=== PATIENT | female | born 1995 | race Caucasian/White ===

== ENCOUNTER → 2020-05-02 | Outpatient (REF) | payer OTHER, MEDICAID ==
[~2020-05-02] MED LIST: IBUP-1114 PO; MAPA500T2 PO; PRENATALVITAMIN PO
== END ==
LOC: M WHC 15:30
PROVIDERS: ATTEND Advanced Practice Midwife
DX: Z12.4 Encounter for screening for malignant neoplasm of cervix (principal); R87.610 Atypical squamous cells of undetermined significance on cytologic smear of cervix (ASC-US)

== ENCOUNTER → 2021-06-19 | Outpatient (REF) | payer OTHER, MEDICAID | LOC: M SFHCWAGY 19:18 | PROVIDERS: ATTEND Advanced Practice Midwife | DX: Z12.4 Encounter for screening for malignant neoplasm of cervix (principal) ==

== ENCOUNTER 2023-10-12 09:41 | Emergency (ER) | payer OTHER, MEDICAID ==
[~2023-10-12] VITALS: Ht 160 cm; Wt 58.9 kg
[2023-10-12 09:41] VITALS: TEMP 98
[2023-10-12] MEDS ORDERED: ALTA1TAB3 (09:52)
[2023-10-12] MEDS ORDERED: CYCL-707 PO (11:30)
[2023-10-12 11:51] VITALS: BP 123/81; O2SAT 100
== END 2023-10-12 11:53 | disposition home or self-care (01) ==
LOC: M ED 09:41
DX: S13.4XXA Sprain of ligaments of cervical spine, initial encounter (principal); V43.52XA Car driver injured in collision with other type car in traffic accident, initial encounter; Y92.410 Unspecified street and highway as the place of occurrence of the external cause

== ENCOUNTER → 2024-04-07 | Outpatient (REF) | payer MEDICAID, OTHER ==
[~2024-04-07] MED LIST changes: +ALTA1TAB3; +CYCL-707 PO
[2024-04-10 12:32] LABS: HPV APTIMA Not Detected (Not Detected)
== END ==
LOC: M LAB REF 13:12
PROVIDERS: ATTEND Nurse Practitioner Family
DX: Z12.4 Encounter for screening for malignant neoplasm of cervix (principal)